=== PATIENT | female | born 1990 | race Two or more races ===

== ENCOUNTER → 2021-07-17 | Outpatient (CLI) | payer BC | LOC: M PLAIMG 09:20 | PROVIDERS: ATTEND Orthopaedic Surgery | DX: M25.561 Pain in right knee (principal) ==

== ENCOUNTER → 2023-02-03 | Outpatient (CLI) | payer BC | LOC: M PLAIMG 06:49 | PROVIDERS: ATTEND Internal Medicine Rheumatology | DX: M35.3 Polymyalgia rheumatica (principal); M47.818 Spondylosis without myelopathy or radiculopathy, sacral and sacrococcygeal region; R20.0 Anesthesia of skin; M46.1 Sacroiliitis, not elsewhere classified ==

== ENCOUNTER → 2023-02-27 | Outpatient (REF) | payer BC | LOC: M SFHCRHEU 15:25 | PROVIDERS: ATTEND Internal Medicine Rheumatology | DX: Z53.9 Procedure and treatment not carried out, unspecified reason (principal) ==